=== PATIENT | male | born 1940 | race Hispanic/Latino ===

== ENCOUNTER → 2022-06-12 07:42 | Outpatient (CLI) | payer MEDICARE, SELFPAY ==
--- NOTE | ~2022-06-12 | CT_ITS ---
CT of the Abdomen and Pelvis: Indication: Hematuria Technique: 2.5 mm axial scans were obtained through the abdomen and pelvis following intravenous adm inistration of 130 cc of Omnipaque 350. Dose reduction technique was used on this scan by utilizing a utomated exposure control and iterative reconstruction technique. The dose-length product (DLP) was 1 109.61 mGy-cm. Findings: Scans through the lung bases demonstrate 3.0 x 2.5 subcentimeter solid nodule in the centr al right middle lobe, near the hilum (axial image 13). There is a 7 mm pulmonary nodule in the left u pper lobe/lingula (axial image 14). There is a 4 mm subpleural nodule the lingula (axial image 14). T here is a calcified right lower lobe granuloma. There is mild interstitial prominence/thickening at t he left lung base.. The liver, spleen, gallbladder, adrenals and left kidney are within normal limits. Patient is status post right nephrectomy. There is extensive fatty atrophy of the pancreas. There is lymphadenopathy ve rsus mesenteric mass measuring 4.5 x 2.4 cm in transverse dimensions, adjacent to the uncinate proces s of pancreas (axial image 65). There are atherosclerotic calcifications of the aorta. No bowel obstruction or bowel wall thickening. There is no evidence to suggest acute appendicitis. Images through the pelvis were performed. Prostate gland is markedly enlarged and heterogeneous. Urin yun bladder appears unremarkable. No ascites. Impression: 3.0 x 2.5 cm central right middle lobe pulmonary nodule, suspicious for neoplasm/metastasis. Addition al subcentimeter left lingular/upper lobe nodules, which could reflect additional metastatic disease. 4.5 x 2.5 cm mass or lymphadenopathy adjacent to the uncinate process of the pancreas, suspicious for neoplastic/metastatic disease. Prior right nephrectomy. Given this finding, the above lesions could reflect metastatic renal cell ca rcinoma. Markedly enlarged and heterogeneous prostate gland. Reviewed, dictated and finalized at location M. Impression: 3.0 x 2.5 cm central right middle lobe pulmonary nodule, suspicious for neoplas m/metastasis. Additional subcentimeter left lingular/upper lobe nodules, which could reflect additional metastatic disease. 4.5 x 2.5 cm mass or lymphadenopathy adjacent to the uncinate process of the pa ncreas, suspicious for neoplastic/metastatic disease. Prior right nephrectomy. Given this finding, the above lesions could reflect me tastatic renal cell carcinoma. Markedly enlarged and heterogeneous prostate gland.
[2022-06-12 08:32] LABS: Estimated Glomerular Filt Rate > 60
== END ==
PROVIDERS: PCP Internal Medicine; Visit Provider Internal Medicine
DX: R31.0 Gross hematuria (principal); R91.1 Solitary pulmonary nodule; Z90.5 Acquired absence of kidney; N40.0 Benign prostatic hyperplasia without lower urinary tract symptoms
CPT/HCPCS: 74177; Q9967

== ENCOUNTER → 2022-06-20 10:00 | Outpatient (CLI) | payer MEDICARE, SELFPAY ==
--- NOTE | ~2022-06-20 | CT_ITS ---
EXAMINATION:CT diagnostic chest wo con DATE: 06/20/2022 10:16 INDICATION: Other nonspecific abnormal finding in lung field. TECHNIQUE: Computed tomography (CT) of the chest was performed without intravenous contrast. Automate d exposure control and iterative reconstruction technique were employed. The dose-length product (DLP ) was 112.84 mGy-cm. COMPARISON: CT abdomen and pelvis 06/12/2022 FINDINGS: Calcified right lung nodules and calcified right hilar lymph nodes are consistent with old granulomatous disease. There is septal thickening in the inferior lungs. There is mild bronchiectasis in the inferior lungs. There is a 2.6 cm nodule in right middle lobe. There are 4 mm, 7 mm, and 8 mm nodules in left upper lobe. There is a 7 mm nodule at left major fissure. No pleural effusion. The h eart size is normal. There are coronary artery calcifications. No pericardial effusion. There is mild thoracic spondylosis. There are bridging endplate osteophytes at multiple levels in the spine, consi stent with diffuse idiopathic skeletal hyperostosis (DISH). IMPRESSION: 1. Pulmonary nodules, consistent metastatic renal cell carcinoma. 2. Mild chronic interstitial lung disease. Reviewed, dictated and finalized at location A.
== END ==
PROVIDERS: PCP Internal Medicine; Visit Provider Internal Medicine
DX: R91.8 Other nonspecific abnormal finding of lung field (principal); J84.9 Interstitial pulmonary disease, unspecified
CPT/HCPCS: 71250

== ENCOUNTER 2022-07-06 09:27 | Outpatient (CLI) | payer MEDICARE, SELFPAY ==
--- NOTE | ~2022-07-06 | PE_ITS ---
EXAMINATION: PET skull to mid thigh DATE: 07/06/2022 11:16 INDICATION: Multiple nodules of lung TECHNIQUE: Blood glucose level was 113 mg/dL. 9.583 mCi of 18-fluorodeoxyglucose (18-FDG) was adminis tered i.v. Low dose computed tomography (CT) images were acquired from the base of the brain to the p roximal thighs for attenuation correction and anatomic localization. Positron emission tomography (PE T) images were acquired in the same distribution beginning 53 minutes after injection. Images includi ng fused PET/CT images were reconstructed in axial, coronal, and sagittal planes. Automated exposure control technique was employed. The dose-length product was 500.45mGy-cm. COMPARISON: 06/20/2022 and 06/12/2022 FINDINGS: Head/neck: There is symmetric increased activity in the nares, oral cavity, lingual tonsils, parotid glands, more bmandibular glands, laryngeal muscles and ocular muscles without CT correlate, likely physiologic. No pathologically enlarged cervical lymphadenopathy or suspicious foci of increased FDG uptake in the v isualized head or neck. Chest: Mild FDG uptake associated with the 2.6 cm perihilar right middle lobe nodule with maximal SUV of 3.4 which remain slightly lower than the uptake in the liver. No discernible uptake associated with the 8 mm, 7 mm and 4 mm left upper lobe nodules or with the 7 mm nodule in the left major fissure is iden tified on prior CT. Calcified nodule in the right upper lobe along with calcified right hilar lymph n odes consistent with old granulomatous disease. Mild dependent atelectasis and/or or pulmonary edema or chronic interstitial lung disease in the bilateral lower lobes. Heart size is normal. Atherosclero tic coronary artery calcification. Small pericardial effusion. Thoracic aorta is normal in caliber. Abdomen/pelvis/proximal thighs: Physiologic renal accumulation and excretion of FDG activity in the left kidney, bladder and along po rtions of the left ureter. Status post right nephrectomy. Normal degree and heterogenous pattern of i ncreased uptake throughout the liver without radiologic correlate or dominant FDG avid lesion. Spleno megaly measuring 16.1 cm in maximal length and a few scattered small calcific lesions consistent with old granulomatous disease. Moderate fatty atrophy of the pancreas. Bilateral adrenal glands are norm al. Normal appendix. Mild to moderate uptake scattered throughout the bowels without radiologic corre late, also likely physiologic. There is mild scattered colonic diverticulosis without adjacent inflam matory change to suggest diverticulitis. Marked prostatomegaly measuring 8.5 x 7.3 x 7.1 cm impressin g upon the base of the bladder. Partially visualized penile implant. No other abnormal foci of increa sed FDG uptake or pathologically enlarged lymphadenopathy in the abdomen, pelvis or proximal thighs. Musculoskeletal: Moderate spondylosis in the cervical and lumbar spine. Chronic appearing likely physiologic mild ante rior wedging at T12. There are bridging osteophytes at multiple levels in the spine, consistent with diffuse idiopathic skeletal hyperostosis (DISH). No suspicious lytic, blastic or FDG avid bone lesion s. IMPRESSION: 1. Mild FDG activity with maximal SUV of 3.4, slightly lower than the level of hepatic activity, asso ciated with the 2.6 cm right middle lobe nodule with no discernible uptake associated with the additi onal subcentimeter nodules in the left lung which could be due to their small size. This remains equi vocal for either benign infectious/inflammatory nodule, slowly growing/low-grade neoplasm including m etastatic renal cell carcinoma. The location of the lesion at the hilum would not be amenable to perc utaneous biopsy but does lie along the right middle lobe bronchus and would likely be amenable to end obronchial ultrasound-guided transbronchial biopsy (EBUS). 2. 4.2 x 2.3 cm lobular soft tissue mass along the uncinate
[2022-07-06 09:54] LABS: Glucose Point of Care 113 mg/dl (65-105)
== END 2022-07-06 09:28 | disposition home or self-care (01) ==
PROVIDERS: PCP Internal Medicine; Visit Provider Internal Medicine
DX: R91.8 Other nonspecific abnormal finding of lung field (principal); C64.9 Malignant neoplasm of unspecified kidney, except renal pelvis; K86.9 Disease of pancreas, unspecified
CPT/HCPCS: 78815; A9552